=== PATIENT | female | born 1975 | race African-American/Black ===

== ENCOUNTER 2019-01-15 17:37 | Emergency (ER) | payer OTHER ==
[~2019-01-15] VITALS: Ht 162.6 cm; Wt 63.6 kg
[~2019-01-15 17:37] MED LIST: NOCURR
[2019-01-15 21:35] LABS: BASOPHILS % (AUTO) 0.4 % (0.0-2.0); EOSINOPHILS % (AUTO) 1.2 % (1.0-6.0); HEMATOCRIT 40.5 % (36-46); HEMOGLOBIN 13.1 g/dL (12.0-16.0); LYMPHOCYTES # (AUTO) 1.9 K/uL (1.0-4.8); LYMPHOCYTES % (AUTO) 25.6 % (22.0-44.0); MEAN CORPUSCULAR HEMOGLOBIN 28.4 pg (26.0-34.0); MEAN CORPUSCULAR HGB CONC 32.5 G/dL (31.0-37.0); MEAN CORPUSCULAR VOLUME 88 fL (80-100); MONOCYTES # (AUTO) 0.5 K/uL (0.1-1.0); MONOCYTES % (AUTO) 7.2 % (2.0-9.0); NEUTROPHILS # (AUTO) 4.8 K/uL (1.8-7.7); NEUTROPHILS % (AUTO) 65.6 % (40.0-70.0); PLATELET COUNT (AUTO) 267 K/uL (150-450); RED BLOOD CELL COUNT(AUTO) 4.62 MIL/uL (4.00-5.20); RED CELL DISTRIBUTION WIDTH 14.2 % (11.5-14.5)
[2019-01-15 22:05] LABS: ALANINE AMINOTRANSFERASE 14 U/L (12-78); ALBUMIN 3.1 g/dL (3.4-5.0); ALKALINE PHOSPHATASE 83 U/L (46-116); ASPARTATE AMINOTRANSFERASE 14 U/L (15-37); BILIRUBIN,TOTAL 0.2 mg/dL (0.1-1.0); CALCIUM, TOTAL 8.7 mg/dL (8.8-10.5); CREATININE 0.78 mg/dL (0.60-1.30); GLOMERULAR FILTR. RATE CALC > 60 mL/min (>60); GLUCOSE,RANDOM 73 mg/dL (70-110); HCG,QUANTITATIVE < 1 mIU/mL (0-6); LIPASE 100 U/L (73-393); UREA NITROGEN, BLOOD 7 mg/dL (7-18)
[2019-01-15] MEDS ORDERED: DICYCLOMINE HCL 20 MG TABLET PO ONE (22:15)
[2019-01-15] MEDS ORDERED: IBUPROFEN 800 MG TABLET PO ONE (22:15)
[2019-01-15 22:18] LABS: ANION GAP 7 mmol/L (8-16); CARBON DIOXIDE 26 mmol/L (22-29); CHLORIDE 106 mmol/L (98-107); SODIUM SERUM 139 mmol/L (136-145)
[2019-01-15] MEDS ORDERED: POTASSIUM CHLORIDE 20 MEQ ER TABLET PO ONE (22:30)
[2019-01-16 01:53] LABS: APPEARANCE,URINE CLOUDY (CLEAR); BILIRUBIN,URINE NEGATIVE (NEGATIVE); GLUCOSE, URINE (UA) NEGATIVE (NEGATIVE); KETONES,URINE NEGATIVE (NEGATIVE); LEUKOCYTE ESTERASE ,URINE MODERATE (NEGATIVE); NITRATE,URINE NEGATIVE (NEGATIVE); OCCULT BLOOD,URINE NEGATIVE (NEGATIVE); PROTEIN,URINE NEGATIVE (NEGATIVE); UROBILINOGEN,URINE 0.2 mg/dL (<=1.0)
[2019-01-16 02:24] LABS: RBC,URINE None Seen /HPF (0-2)
[2019-01-16 02:25] LABS: BACTERIA,URINE Few /HPF (None Seen); CALCIUM OXALATE CRYSTALS,UR Rare /LPF (None Seen); SQUAMOUS EPITHELIAL CELL,UR Moderate /LPF (None Seen); WBC,URINE 26-50 /HPF (0-5)
[2019-01-16 02:36] VITALS: BP 106/68
== END 2019-01-16 02:40 | disposition home or self-care (01) ==
LOC: EMS 17:39
DX: K80.20 Calculus of gallbladder without cholecystitis without obstruction (principal); Z88.0 Allergy status to penicillin
CPT/HCPCS: 76700; 87086

== ENCOUNTER 2024-05-06 20:08 | Emergency (ER) | payer MEDICAID, OTHER ==
[~2024-05-06] VITALS: Ht 162.6 cm; Wt 63.6 kg
[2024-05-06] MEDS: IBUPROFEN 600 MG TABLET PO ONE (20:50)
[2024-05-06] MEDS: DOXYCYCLINE HYCLATE 100 MG TABLET PO ONE (20:50)
[2024-05-06] MEDS: CEPHALEXIN MONOHYDRATE 500 MG CAPSULE PO ONE (20:50)
[2024-05-06] MEDS: HYDROCODONE/ACETAMINOPHEN 5-325 MG TABLET PO ONE (20:50)
[2024-05-06] MEDS ORDERED: ACET-3385 PO (22:32)
[2024-05-06] MEDS ORDERED: DOXY-354 PO (22:32)
[2024-05-06] MEDS ORDERED: IBUP-1506 PO (22:32)
[2024-05-06] MEDS ORDERED: CEPH-558 PO (22:32)
[2024-05-06 23:00] VITALS: BP 135/79; PULSE 79; RESP 16; TEMP 97.3; O2SAT 98
== END 2024-05-06 23:48 | disposition home or self-care (01) ==
LOC: EMS 20:08
DX: L03.111 Cellulitis of right axilla (principal); L73.2 Hidradenitis suppurativa; Z98.890 Other specified postprocedural states; Z88.0 Allergy status to penicillin
CPT/HCPCS: 99284; Z7502; Z7610